=== PATIENT | female | born 1955 | race Caucasian/White ===

== ENCOUNTER 2017-04-18 23:34 | Inpatient (IN) | payer MEDICAID ==
[~2017-04-18] VITALS: Ht 162.6 cm; Wt 65.5 kg
[~2017-04-18 23:34] MED LIST: ALPR0.25 PO; BENA20TA3 PO; HUMALOG INSULIN SUBCUT; HYDR-3927 PO; INSU3INS6 SQ; METO-293 PO; RA COL-RITE PO; SIMV20TA6 PO
[2017-04-19] VITALS (28 sets, daily range): BP systolic 99–149; BP diastolic 37–79
[2017-04-19] MEDS ORDERED: FAMOTIDINE 20MG/2ML VIAL IV STA (00:56)
[2017-04-19] MEDS ORDERED: METOCLOPRAMIDE HCL 10MG/2ML VIAL IV STA (00:56)
[2017-04-19] MEDS ORDERED: MORPHINE SULFATE 4 MG/ML CPJ (NOT FOR IM USE) IV STA (00:56)
[2017-04-19] MEDS ORDERED: ONDANSETRON HCL 4MG/2ML VIAL IV STA (00:56)
[2017-04-19] MEDS ORDERED: SODIUM CHLORIDE 0.9% 1,000 ML IV ONE (00:56)
[2017-04-19 01:30] LABS: BASOPHILS % 0.7 % (0.0-2.0); HEMATOCRIT. 23.3 % (36.0-48.0); MEAN CORPUSCULAR HEMOGLOBIN 28.9 pg (28.0-32.0); MEAN CORPUSCULAR VOLUME 84.6 fL (81.0-99.0); MEAN PLATELET VOLUME 9.6 fl (7.4-10.4); MONOCYTES % 5.9 % (2.0-8.0); NEUTROPHILS % 67.4 % (40.0-76.0); PLATELET 77 x1000/uL (130-400); RED BLOOD CELL COUNT 2.76 mill/uL (4.2-5.4); RED CELL DISTRIBUTION WIDTH 15.1 % (11.6-14.6)
[2017-04-19 01:36] LABS: INR 1.2; PROTHROMBIN TIME 12.9 sec (9.4-11.6)
[2017-04-19 01:45] LABS: BETA HYDROXYBUTYRATE 0.2 mMol/L (0.0-0.3); CARBON DIOXIDE 27 mEq/L (21-32); CHLORIDE 103 mEq/L (98-107); TROPONIN I 0.02 ng/mL (0.00-0.04)
[2017-04-19] MEDS ORDERED: METHYLPREDNISOLONE SOD SUCC 125 MG/2 ML VIAL IV ONE (01:45)
[2017-04-19 04:55] LABS: CLARITY URINE CLOUDY (CLEAR); COLOR URINE YELLOW (YELLOW); GLUCOSE URINE TRACE (NEGATIVE); KETONES URINE TRACE (NEGATIVE); LEUKOCYTE ESTERASE URINE TRACE (NEGATIVE); NITRITE URINE POSITIVE (NEGATIVE); OCCULT BLOOD URINE NEGATIVE (NEGATIVE); PH URINE 5.5 (4.5-8.0); PROTEIN URINE TRACE (NEGATIVE); SPECIFIC GRAVITY URINE 1.023 (1.005-1.030); UROBILINOGEN URINE 0.2 E.U./dL (0.2-1.0)
[2017-04-19] MEDS ORDERED: SODIUM CHLORIDE 0.9% 10ML VIAL ONE (06:00)
[2017-04-19] MEDS ORDERED: IOHEXOL-300 100 ML BOTTLE ONE (06:00)
[2017-04-19] MEDS ORDERED: DEXTROSE 50% WATER 50ML SYRINGE IV PRN (11:30)
[2017-04-19] MEDS ORDERED: ONDANSETRON HCL 4MG/2ML VIAL IV PRN ×2 (11:30→16:45)
[2017-04-19] MEDS ORDERED: ACETAMINOPHEN 325MG TABLET PO PRN (11:30)
[2017-04-19] MEDS: BLOOD SUGAR DIAGNOSTIC STRIP TEST SCH ×2 (11:42→20:08)
[2017-04-19] MEDS: SODIUM CHLORIDE 0.9% 1,000 ML IV SCH ×2 (11:58→20:53)
[2017-04-19] MEDS: INSULIN LISPRO 100 UNITS/ML SUBCUT SCH ×2 (11:59→20:14)
[2017-04-19] MEDS: LEVOFLOXACIN 500MG PREMIX 100 ML IV SCH (14:22)
[2017-04-19] MEDS: METRONIDAZOLE 500 MG PREMIX 100 ML IV SCH ×2 (14:22→21:05)
[2017-04-19 15:02] LABS: BASOPHILS % 0.4 % (0.0-2.0); EOSINOPHILS % 0.1 % (0.0-5.0); LYMPHOCYTES % 13.8 % (20.0-50.0); MEAN CORPUSCULAR HEMOGLOBIN 29.2 pg (28.0-32.0); MEAN CORPUSCULAR VOLUME 86.5 fL (81.0-99.0); MEAN PLATELET VOLUME 9.7 fl (7.4-10.4); MONOCYTES % 1.8 % (2.0-8.0); NEUTROPHILS % 83.9 % (40.0-76.0); PLATELET 56 x1000/uL (130-400); RED BLOOD CELL COUNT 2.15 mill/uL (4.2-5.4); RED CELL DISTRIBUTION WIDTH 15.1 % (11.6-14.6)
[2017-04-19 15:09] LABS: HEMATOCRIT. 18.6 % (36.0-48.0); HEMOGLOBIN. 6.3 g/dL (12.0-16.0)
[2017-04-19] MEDS ORDERED: OCTREOTIDE ACETATE 50 MCG/ML 1ML IV ONE (16:45)
[2017-04-19] MEDS: METOCLOPRAMIDE HCL 10MG/2ML VIAL IV SCH (17:33)
[2017-04-19] MEDS: OCTREOTIDE 1,000 MCG in SODIUM CHLORIDE 0.9% 98 ML IV SCH (17:36)
[2017-04-19] MEDS ORDERED: INSULIN LISPRO 100 UNITS/ML SUBCUT NR (17:49)
[2017-04-19 19:59] LABS: HEPATITIS B SURFACE ANTIGEN NEGATIVE
[2017-04-19 20:28] LABS: HEPATITIS B CORE AB IGM NEGATIVE
[2017-04-19 20:29] LABS: HEPATITIS A AB IGM NEGATIVE (NEGATIVE)
[2017-04-20] VITALS (33 sets, daily range): BP systolic 110–187; BP diastolic 54–101
[2017-04-20] MEDS: METOCLOPRAMIDE HCL 10MG/2ML VIAL IV SCH ×5 (00:20→23:52)
[2017-04-20 00:46] LABS: HEMOGLOBIN 9.3 g/dL (12.0-16.0); MEAN CORPUSCULAR HEMOGLOBIN 28.6 pg (28.0-32.0); PLATELET 58 x1000/uL (130-400); RED BLOOD CELL COUNT 3.26 mill/uL (4.2-5.4); RED CELL DISTRIBUTION WIDTH 17.7 % (11.6-14.6)
[2017-04-20] MEDS: BLOOD SUGAR DIAGNOSTIC STRIP TEST SCH ×4 (05:42→20:45)
[2017-04-20] MEDS: METRONIDAZOLE 500 MG PREMIX 100 ML IV SCH ×3 (05:42→20:55)
[2017-04-20] MEDS: INSULIN LISPRO 100 UNITS/ML SUBCUT SCH ×4 (06:00→20:56)
[2017-04-20] MEDS ORDERED: FENTANYL CITRATE/PF 50MCG/ML 2ML VIAL ONE (08:47)
[2017-04-20] MEDS ORDERED: MIDAZOLAM HCL 5 MG/5 ML VIAL ONE (08:48)
[2017-04-20] MEDS ORDERED: SODIUM CHLORIDE 0.9% 10ML VIAL ONE (09:06)
[2017-04-20] MEDS ORDERED: SIMETHICONE 40 MG/0.6 ML 30ML ONE (09:06)
[2017-04-20] MEDS: SODIUM CHLORIDE 0.9% 1,000 ML IV SCH ×2 (09:10→20:55)
[2017-04-20] MEDS ORDERED: DIPHENHYDRAMINE 50MG/ML VIAL ONE (09:41)
[2017-04-20] MEDS ORDERED: DIPHENHYDRAMINE 50MG/ML VIAL IV SCH (09:45)
[2017-04-20] MEDS: PANTOPRAZOLE SODIUM 40 MG/VIAL IV SCH (11:21)
[2017-04-20] MEDS: SUCRALFATE 1 G/10 ML UDC PO SCH ×3 (11:21→23:56)
[2017-04-20] MEDS: OCTREOTIDE 1,000 MCG in SODIUM CHLORIDE 0.9% 98 ML IV SCH (11:22)
[2017-04-20] MEDS: LEVOFLOXACIN 500MG PREMIX 100 ML IV SCH (13:12)
[2017-04-20] MEDS ORDERED: CLONIDINE 0.1MG TABLET PO PRN (14:45)
[2017-04-20] MEDS: BENAZEPRIL 20MG TABLET PO SCH (15:08)
[2017-04-21] VITALS (7 sets, daily range): BP systolic 130–170; BP diastolic 57–75
[2017-04-21] MEDS: BLOOD SUGAR DIAGNOSTIC STRIP TEST SCH ×2 (06:17→12:17)
[2017-04-21] MEDS: SODIUM CHLORIDE 0.9% 1,000 ML IV SCH ×2 (06:34→09:27)
[2017-04-21] MEDS: METOCLOPRAMIDE HCL 10MG/2ML VIAL IV SCH ×2 (06:35→12:28)
[2017-04-21] MEDS: SUCRALFATE 1 G/10 ML UDC PO SCH ×2 (06:35→12:32)
[2017-04-21] MEDS: METRONIDAZOLE 500 MG PREMIX 100 ML IV SCH ×2 (06:36→15:50)
[2017-04-21] MEDS: INSULIN LISPRO 100 UNITS/ML SUBCUT SCH ×2 (06:37→12:31)
[2017-04-21] MEDS: PANTOPRAZOLE SODIUM 40 MG/VIAL IV SCH (09:15)
[2017-04-21] MEDS: BENAZEPRIL 20MG TABLET PO SCH (09:16)
[2017-04-21] MEDS: OCTREOTIDE 1,000 MCG in SODIUM CHLORIDE 0.9% 98 ML IV SCH (09:20)
[2017-04-21] MEDS ORDERED: LACTULOSE 20G/30ML UDC PO SCH (13:30)
[2017-04-21] MEDS ORDERED: PROPRANOLOL HCL 10MG TABLET PO SCH (13:30)
[2017-04-21] MEDS: LEVOFLOXACIN 500MG PREMIX 100 ML IV SCH (14:43)
[2017-04-21 16:22] LABS: BASOPHILS % 0.4 % (0.0-2.0); EOSINOPHILS % 1.3 % (0.0-5.0); HEMATOCRIT. 27.4 % (36.0-48.0); HEMOGLOBIN. 9.3 g/dL (12.0-16.0); LYMPHOCYTES % 17.1 % (20.0-50.0); MEAN CORPUSCULAR HEMOGLOBIN 28.4 pg (28.0-32.0); MEAN CORPUSCULAR VOLUME 83.6 fL (81.0-99.0); MEAN PLATELET VOLUME 8.5 fl (7.4-10.4); MONOCYTES % 6.3 % (2.0-8.0); NEUTROPHILS % 74.9 % (40.0-76.0); PLATELET 65 x1000/uL (130-400); RED BLOOD CELL COUNT 3.28 mill/uL (4.2-5.4); RED CELL DISTRIBUTION WIDTH 17.4 % (11.6-14.6)
[2017-04-21 16:35] LABS: AMMONIA 22 uMol/L (<32)
[2017-04-21] MEDS ORDERED: METRONIDAZOLE 500MG TABLET PO SCH (22:00)
[2017-04-22] MEDS ORDERED: LEVOFLOXACIN 500MG TABLET PO SCH (11:00)
== END 2017-04-21 19:15 | disposition home or self-care (01) | DRG 950 ==
LOC: ER 23:34 → 8WST 04-19 06:04 → EDBEDREQTM 04-19 06:05 → EDBEDREQ 04-19 06:05 → EDBEDREQSVC 04-19 06:05 → ENRESERV 04-19 07:00 → MICUSO 04-19 17:07 → 5WST 04-20 16:19
PROVIDERS: ADMIT Family Medicine; ATTEND Family Medicine
PROC: 30233N1 Transfusion of Nonautologous Red Blood Cells into Peripheral Vein, Percutaneous Approach (ICD-10-PCS; principal; 2017-04-19)
PROC: 06L34CZ Occlusion of Esophageal Vein with Extraluminal Device, Percutaneous Endoscopic Approach (ICD-10-PCS; 2017-04-20)
DX: K74.60 Unspecified cirrhosis of liver (principal); I85.11 Secondary esophageal varices with bleeding; D68.4 Acquired coagulation factor deficiency; K76.6 Portal hypertension; D69.6 Thrombocytopenia, unspecified; I11.9 Hypertensive heart disease without heart failure; N13.30 Unspecified hydronephrosis; E11.9 Type 2 diabetes mellitus without complications; D50.9 Iron deficiency anemia, unspecified; K80.20 Calculus of gallbladder without cholecystitis without obstruction; D72.819 Decreased white blood cell count, unspecified; E78.5 Hyperlipidemia, unspecified; F41.9 Anxiety disorder, unspecified; I86.4 Gastric varices; J45.909 Unspecified asthma, uncomplicated; F10.20 Alcohol dependence, uncomplicated; R16.1 Splenomegaly, not elsewhere classified; K31.89 Other diseases of stomach and duodenum; Z86.73 Personal history of transient ischemic attack (TIA), and cerebral infarction without residual deficits; Z79.899 Other long term (current) drug therapy; Z79.4 Long term (current) use of insulin; Z88.0 Allergy status to penicillin; Z88.6 Allergy status to analgesic agent; Z91.013 Allergy to seafood
CPT/HCPCS: 36415; 36430; 71010; 74177; 76700; 80048; 80053; 81001; 82010; 82140; 82962; 83605; 83690; 84484; 85025; 85027; 85610; 86705; 86709; 86803; 86850; 86900; 86920; 87340; 93005; 96361; 96374; 96375; 99152; 99153; 99285; A4216; C9113; J1200; J1815; J1956; J2250; J2270; J2354; J2405; J2765; J2930; J3010; J3490; J7030; J7050; P9016; Q9967